=== PATIENT | male | born 1970 | race Caucasian/White ===

== ENCOUNTER 2016-11-20 09:31 | Emergency (ER) | payer OTHER ==
[~2016-11-20] VITALS: Ht 188 cm; Wt 108.9 kg
[~2016-11-20 09:31] MED LIST: CYCLOBENZAPRINE10 M1 PO; FLEXERIL10 MG PO; MEDROL DOSEPAK1 PAC PO; MEDROL4 M2 PO; TRAMADOL50 MG PO; ULTRAM50 M1 PO
--- NOTE | 2016-11-20 10:45 | ED MVC/FALL/TRAUMA COMPLAINT ---
History of Present Illness General Chief Complaint: Low Back Pain/Injury Stated Complaint: LOWER BACK PAIN Source: patient Exam Limitations: no limitations Vital Signs & Intake/Output Vital Signs & Intake/Output Vital Signs Date Time Temp Pulse Resp B/P Pulse O2 O2 Flow FiO2 Ox Delivery Rate 11/20 1119 98.1 82 18 128/76 98 Room Air 11/20 0944 97.1 84 18 129/89 99 Room Air Allergies Coded Allergies: NO KNOWN ALLERGIES (09/11/11) Reconcile Medications Meloxicam (Mobic) 15 MG TABLET 1 TAB PO DAILY PRN PAIN Methylprednisolone. (Medrol) 4 MG TAB.DS.PK 1 DP PO AD INFLAMMATION 6 on day 1 then reduce by one tablet daily until gone Tramadol HCl 50 MG TABLET 1 TAB PO TID PRN PAIN Triage Note: 46 Y/O MALE C/O LOW BACK PAIN S/P FALL AGAINST HOUSE YESTERDAY WHILE WORKING OUTSIDE. TOOK IBUPROPHEN AROUND 0430 WITH NO RELIEF. Triage Nurses Notes Reviewed? yes Onset: Abrupt Duration: constant Timing: recent history Severity: severe Severity Numbers: 10 HPI: Patient is a 46-year-old male with past medical history of chronic back pain and herniated disc who states that recently he has been doing well with this management of his back pain however yesterday while shoveling snow he twisted his back resulting acute onset of sharp stabbing severe back pain with radiation down his right leg. Patient has had this symptom in the past however nothing recent. Denies any fall. Patient hasn't taken any medications for symptoms. Denies any lower extremity weakness or saddle paresthesia bowel or bladder incontinence. States that lumbar spine movements make worse (JONI OSORIO) Past History Travel History Traveled to [place] past 21 day No Medical History Any Pertinent Medical History? see below for history Neurological: NONE EENT: NONE Cardiovascular: NONE Respiratory: NONE Gastrointestinal: NONE Hepatic: NONE Renal: NONE Musculoskeletal: L3-S1 HERNIATION Psychiatric: NONE Endocrine: NONE Blood Disorders: NONE Cancer(s): NONE Surgical History Surgical History: non-contributory Psychosocial History What is your primary language Italian Tobacco Use: Current Daily Use Daily Tobacco Use Amount/Type: =< 4 Cigarettes daily Family History Hx Contributory? No (JONI OSORIO) Review of Systems Review of Systems Constitutional: Reports: no symptoms. Eyes: Reports: no symptoms. Ears, Nose, Throat, Mouth: Reports: no symptoms. Respiratory: Reports: no symptoms. Cardiovascular: Reports: no symptoms. Gastrointestinal/Abdominal: Reports: no symptoms. Genitourinary: Reports: no symptoms. Musculoskeletal: Reports: see HPI, back pain, muscle pain, muscle stiffness. Skin: Reports: no symptoms. Neurological/Psychological: Reports: no symptoms. All Other Systems: Reviewed and Negative (JONI OSORIO) Physical Exam Physical Exam General Appearance: mild distress Comments: HEENT: Normal EENT exam Neck: Supple, no lymphadenopathy, normal range of motion without pain or tenderness Back: Normal inspection, right-sided paralumbar muscular tenderness, decreased active range of motion noted Cardiovascular: Regular rate and rhythms no murmurs rubs or gallops, normal JVP Respiratory: Chest nontender. No respiratory distress.breath sounds clear to auscultation bilaterally Abdomen: Soft, nontender nondistended, no appreciable organomegaly. Normal bowel sounds. No ascites Extremity: No edema, no calf tenderness to palpation, normal and equal pulses. Bilateral lower extremity myotomes dermatomes DTRs intact Neuro: Alert oriented x3, motor sensory normal, Skin: No appreciable rash on exposed skin, skin is warm and dry. Psych: Mood and affect is normal, memory and judgment is normal. Core Measures ACS in differential dx? No Severe Sepsis Present: No Septic Shock Present: No (JONI OSORIO) Progress Differential Diagnosis: aoritic dissection, abd injury, C/T/L spine injury, ext injury, ICH, pelvis injury, pnemothorax, spinal cord injury Plan of Care: Patient currently shows no concerns on exam of neurovascular compromise of lower extremity. Patient has nontender abdomen. No concern of CAUDA EQUINA SYNDROME Patient was offered parental medications in the ER however he declined. Patient denies any fall and no concern of central spinous tenderness in which he does not warrant acute imaging (JONI OSORIO) Departure Departure Disposition: HOME OR SELF CARE Condition: Stable Clinical Impression Primary Impression: Low back strain Secondary Impressions: Lumbar radiculopathy Referrals: PATIENT HAS NO PRIMARY CARE DR (PCP/Family) Additional Instructions: As discussed begin icing the area 20 minutes every 2 hours. Begin the prescription of meloxicam for pain and inflammation. Begin the prescription of tramadol for breakthrough pain relief. Begin the prescription of Medrol Dosepak for inflammation. PRESCRIPTION IS waiting at [facility]. If symptoms worsen return to emergency room. Activity as tolerated. Follow-up with your primary care doctor and/or your back specialist in one week if no better Departure Forms: Customer Survey General Discharge Information Prescriptions: Current Visit Scripts Tramadol HCl 1 TAB PO TID PRN PAIN #15 TAB Meloxicam (Mobic) 1 TAB PO DAILY PRN PAIN #14 TAB Methylprednisolone. (Medrol) 1 DP PO AD #1 DP 6 on day 1 then reduce by one tablet daily until gone (DALTON DE JESUS,JONI) PA/[employer] Co-Sign Statement Statement: ED Attending supervision documentation- [X] I saw and evaluated the patient. I have also reviewed all the pertinent lab results and diagnostic results. I agree with the findings and the plan of care as documented in the PA's/[employer]'s documentation. [X] I have reviewed the ED Record and agree with the PA's/[employer]'s documentation. [] Additions or exceptions (if any) to the PAs/[employer]'s note and plan are summarized below: [] (ALXE DEVI,JEISON Fitzgerald)
[2016-11-20] MEDS ORDERED: MEDROL4 M2 PO (11:14)
[2016-11-20] MEDS ORDERED: TRAMADOL HCL50 M1 PO (11:14)
[2016-11-20] MEDS ORDERED: MOBIC15 M1 PO (11:14)
[2016-11-20 11:19] VITALS: BP 128/76
== END 2016-11-20 11:24 ==
LOC: ERH 09:31
DX: S39.012A Strain of muscle, fascia and tendon of lower back, initial encounter (principal); M54.17 Radiculopathy, lumbosacral region; X50.0XXA Overexertion from strenuous movement or load, initial encounter; Y93.H1 Activity, digging, shoveling and raking; Y93.9 Activity, unspecified

== ENCOUNTER 2018-05-03 17:07 | Emergency (ER) | payer OTHER ==
[~2018-05-03] VITALS: Ht 188 cm; Wt 104.3 kg
[~2018-05-03 17:07] MED LIST changes: +MOBIC15 M1 PO; +PREDNISONE10 M2 PO; +ROBAXIN500 M1 PO; +TRAMADOL HCL50 M1 PO
[2018-05-03 17:15] VITALS: BP 148/95
--- NOTE | 2018-05-03 17:29 | ED NECK/BACK PAIN COMPLAINT ---
History of Present Illness General Chief Complaint: Lower Extremity Problems Stated Complaint: PT HURT HIS BACK CHANGING TIRE Source: patient Exam Limitations: no limitations Vital Signs & Intake/Output Vital Signs & Intake/Output Vital Signs Date Time Temp Pulse Resp B/P B/P Pulse O2 O2 Flow FiO2 Mean Ox Delivery Rate 05/03 1715 98.2 97 18 148/95 98 Room Air Allergies Coded Allergies: NO KNOWN ALLERGIES (09/11/11) Reconcile Medications Cyclobenzaprine HCl 10 MG TABLET 1 TAB PO TID SPASMS Ibuprofen 800 MG TABLET 1 TAB PO TID PAIN Meloxicam (Mobic) 15 MG TABLET 1 TAB PO DAILY PRN pain Meloxicam (Mobic) 15 MG TABLET 1 TAB PO DAILY PRN PAIN Methocarbamol (Robaxin) 500 MG TABLET 1 TAB PO TID PRN muscle spasms Methylprednisolone. (Medrol) 4 MG TAB.DS.PK 1 DP PO AD BACK PAIN 6 on day 1 then reduce by one tablet daily until gone Methylprednisolone. (Medrol) 4 MG TAB.DS.PK 1 DP PO AD nerve flare 6 on day 1 then reduce by one tablet daily until gone Methylprednisolone. (Medrol) 4 MG TAB.DS.PK 1 DP PO AD INFLAMMATION 6 on day 1 then reduce by one tablet daily until gone Prednisone 10 MG TABLET 1 TAB PO DAILY back pain 3 tabs po x 3 days, 2 tabs po x 3 days, 1 tab po x 3 days Tramadol HCl 50 MG TABLET 1-2 TAB PO Q8P PRN PAIN Tramadol HCl 50 MG TABLET 1 TAB PO BIDP PRN pain Tramadol HCl 50 MG TABLET 1 TAB PO BIDP PRN pain Tramadol HCl 50 MG TABLET 1 TAB PO TID PRN PAIN Triage Note: 47 YO MALE TO TRIAGE FOR EVAL OF LOWER BACK PAIN. STATES HAS HERNIATED DISC IN HIS BACK, STATES THIS AM HE WAS CHANGING A TIRE AND FEELS HIS BACK IS FLARED UP NOW. STATES PAIN RADAIES DOWN HIS L LEG. Triage Nurses Notes Reviewed? yes Onset: Abrupt Duration: day(s): (1), constant Timing: recent history Quality/Severity: moderate Location: lumbar spine HPI: 47-year-old male comes into the emergency room with complaints of back pain. Patient reports that he was changing a tire last night. Patient reports that he felt a pulling his lower back. He has a history of disc herniation in his lower back. The pain is shooting down both legs but more so in the right leg. Worse with any type of movement. Denies any urinary bowel dysfunction. Denies any numbness in his genital area. Comes in for further evaluation. (Wilder Dillon) Past History Travel History Traveled to [place] past 21 day No Medical History Any Pertinent Medical History? see below for history Neurological: NONE EENT: NONE Cardiovascular: NONE Respiratory: NONE Gastrointestinal: NONE Hepatic: NONE Renal: NONE Musculoskeletal: L3-S1 HERNIATION Psychiatric: NONE Endocrine: NONE Blood Disorders: NONE Cancer(s): NONE Surgical History Surgical History: non-contributory Psychosocial History What is your primary language Urdu Tobacco Use: Never used Family History Hx Contributory? No (Wilder Dillon) Review of Systems Review of Systems Constitutional: Reports: no symptoms. Eyes: Reports: no symptoms. Ears, Nose, Throat, Mouth: Reports: no symptoms. Respiratory: Reports: no symptoms. Cardiovascular: Reports: no symptoms. Gastrointestinal/Abdominal: Reports: no symptoms. Musculoskeletal: Reports: see HPI. Skin: Reports: no symptoms. Neurological/Psychological: Reports: no symptoms. All Other Systems: Reviewed and Negative (Wilder Dillon) Physical Exam Physical Exam General Appearance: well developed/nourished, mild distress Head: atraumatic Eyes: Bilateral: normal appearance. Ears, Nose, Throat, Mouth: hearing grossly normal, moist mucous membrane Neck: normal inspection Respiratory: no respiratory distress Back: normal inspection Extremities: normal range of motion Motor: Deficit L4 Right: No Deficit L4 Left: No Deficit L5 Right: No Deficit L5 Left: No Deficit S1 Right: No Deficit S1 Right: No Neurologic/Psych: awake, alert, oriented x 3, normal mood/affect Skin: intact, normal color, warm/dry Core Measures CVA/TIA Diagnosis: No (Wilder Dillon) Progress Differential Diagnosis: cauda equina syn, herniated disc, sciatica, muscle strain Plan of Care: 05/03/2018 6:58:09 PM Patient clinically looks well. Symptoms are most consistent with lumbar radiculopathy. Patient started on previous regimen that he's been on in the past that helped him. He has no motor deficits. He has no urinary bowel dysfunction. Pain is consistent with patient's previous back issues. (Wilder Dillon) Departure Departure Disposition: HOME OR SELF CARE Condition: Stable Clinical Impression Primary Impression: Lumbar radiculopathy, acute Referrals: Patient Has No Primary Care Dr (PCP/Family) Additional Instructions: Take ibuprofen, Flexeril, tramadol, and Medrol Dosepak as prescribed. Follow-up with your primary care doctor. Please go over all results of today's visit with your primary care doctor. Contact your primary care doctor to let them know you were here in the emergency room. There may be nonspecific findings which may not be related to your visit today here in the emergency room but may require further evaluation and chronic monitoring by your primary care doctor. If you had a laceration today the chance of foreign body always remains. You should follow-up with your primary care doctor for recheck in 3-5 days for a wound check. If you had an x-ray done there is a chance that a fracture could have been missed on initial read and you should follow-up with your primary care doctor for repeat x-rays if symptoms persist. If your blood pressure was elevated here in the emergency room please have rechecked by [facility] primary care doctor within the next 48. If you were prescribed a narcotic here in the emergency room or any type of controlled substances you're not allowed to drive while taking this medication or operate any type of heavy machinery. Narcotics can make you feel lightheaded dizziness nausea and can cause constipation. You may need to lemon picker a stool softener. Thank you for choosing [facility] emergency room. Please return to the emergency room immediately if you have any other concerns worsening of symptoms. Departure Forms: Customer Survey General Discharge Information Prescriptions: Current Visit Scripts Tramadol HCl 1-2 TAB PO Q8P PRN PAIN #20 TAB Methylprednisolone. (Medrol) 1 DP PO AD #1 DP 6 on day 1 then reduce by one tablet daily until gone Cyclobenzaprine HCl 1 TAB PO TID #30 TAB Ibuprofen 1 TAB PO TID #60 TAB (Wilder Dillon) PA/[employer] Co-Sign Statement Statement: ED Attending supervision documentation- [] I saw and evaluated the patient. I have also reviewed all the pertinent lab results and diagnostic results. I agree with the findings and the plan of care as documented in the PA's/[employer]'s documentation. [x] I have reviewed the ED Record and agree with the PA's/[employer]'s documentation. [] Additions or exceptions (if any) to the PAs/[employer]'s note and plan are summarized below: [] (Armaan DEVI,[facility])
[2018-05-03] MEDS ORDERED: MEDROL4 M2 PO (17:32)
[2018-05-03] MEDS ORDERED: CYCLOBENZAPRINE10 M1 PO (17:32)
[2018-05-03] MEDS ORDERED: IBUPROFEN800 M1 PO (17:32)
[2018-05-03] MEDS ORDERED: TRAMADOL HCL50 M1 PO (17:32)
== END 2018-05-03 17:43 ==
LOC: ERH 17:07
DX: M54.16 Radiculopathy, lumbar region (principal)